=== PATIENT | male | born 1985 | race Caucasian/White ===

== ENCOUNTER 2019-06-25 08:26 | Outpatient (CLI) | payer OTHER ==
[2019-06-25 14:19] LABS: Hemoglobin 16.7 g/dL (14.0-18.0); Mean Corpuscular HGB CONC 34.3 g/dL (32.0-36.0); Mean Corpuscular Hemoglobin 30.5 pg (27.0-31.0); Mean Corpuscular Volume 89.1 fL (78.0-98.0); Mean Platelet Volume 7.2 fL (7.4-10.4); Platelet Count 210 thou/uL (130-400); RBC Distribution Width 11.6 % (11.5-14.5); Red Blood Cell (RBC) Count 5.49 mill/uL (4.70-6.10); White Blood Cell (WBC) Count 7.3 thou/uL (4.8-10.8)
[2019-06-25 14:39] LABS: Anion Gap 13 mmol/L (10-20); BUN (Urea Nitrogen) 16 mg/dL (8.9-20.6); Calc. Creatinine Clearance 0 mL/min (70-130); Calcium 9.6 mg/dL (7.8-10.44); Carbon Dioxide 28 mmol/L (22-29); Chloride 104 mmol/L (98-107); Estimated GFR-MDRD 64; Glucose 86 mg/dL (70-105); Sodium 141 mmol/L (136-145)
[2019-06-26 13:13] LABS: SARS-CoV-2 MS2 Positive; SARS-CoV-2 N Gene Negative; SARS-CoV-2 S Gene Negative; SARS-CoV-2 orf1ab Negative
== END 2019-06-25 08:27 | disposition home or self-care (01) ==
LOC: LABBT 08:26
PROVIDERS: ATTEND Neurological Surgery
DX: Z01.812 Encounter for preprocedural laboratory examination (principal); Z11.59 Encounter for screening for other viral diseases; M54.16 Radiculopathy, lumbar region
CPT/HCPCS: 80048; 85027; 87635; U0002

== ENCOUNTER 2019-06-29 05:35 | Observation (INO) | payer OTHER ==
[2019-06-25 13:31] VITALS: BMI 34.2
[2019-06-29] MEDS ORDERED: Fentanyl 100 MCG/2 ML VIAL ONE ×4 (06:44→10:19)
[2019-06-29] MEDS ORDERED: Midazolam HCl 2 mg/2 ml Vial ONE (06:45)
[2019-06-29] MEDS ORDERED: HYDROmorphone 2 MG/ML VIAL ONE (07:52)
[2019-06-29] MEDS ORDERED: traMADol HCl 50 MG TAB PO PRN ×2 (10:01)
[2019-06-29] MEDS ORDERED: Promethazine 25 MG TAB PO PRN (10:01)
[2019-06-29] MEDS ORDERED: Milk Of Magnesia 30 ML UDCUP PO PRN (10:01)
[2019-06-29] MEDS ORDERED: diphenhydrAMINE 25 MG CAP PO PRN (10:01)
[2019-06-29] MEDS ORDERED: Promethazine HCl 25 MG/ML VIAL IM PRN (10:01)
[2019-06-29] MEDS ORDERED: diphenhydrAMINE 50 MG/ML VIAL IVP PRN (10:01)
[2019-06-29] MEDS ORDERED: Morphine 4 MG/ML VIAL SLOW IVP PRN (10:01)
[2019-06-29] MEDS ORDERED: Mag-Al 1200 mg/1200 mg/30 ML UDCUP PO PRN (10:01)
[2019-06-29] MEDS ORDERED: Promethazine HCl 12.5 MG SUPP PR PRN (10:01)
[2019-06-29] MEDS ORDERED: HYDROcodone/Acetaminophen 10/325 mg Tablet PO PRN (10:01)
[2019-06-29] MEDS ORDERED: Ondansetron PF 4 MG/2 ML Vial IVP PRN (10:04)
[2019-06-29] MEDS ORDERED: Ondansetron PF 4 MG/2 ML Vial ONE (10:22)
[2019-06-29] MEDS ORDERED: PROPOFOL 200 MG/20 ML VIAL ONE (10:22)
[2019-06-29] MEDS ORDERED: Rocuronium Bromide 10 MG/ML (10ML VIAL) ONE (10:22)
[2019-06-29] MEDS ORDERED: Lidocaine 1% PF 5 ML VIAL ONE (10:22)
[2019-06-29] MEDS ORDERED: Glycopyrrolate 0.2 MG/ML 5 ML SYRINGE ONE (10:22)
--- NOTE | 2019-06-29 10:54 | OP ---
DATE OF PROCEDURE: 06/29/2019 [employer] SUPERVISOR: Kyra Mejia PA-C PROCEDURES PERFORMED: Left L4-L5 and L5-S1 laminectomy, facetectomy, and foraminotomy, interbody arthrodesis, intervertebral biomechanical device, local morselized autograft, demineralized bone matrix, posterolateral arthrodesis, pedicle screw instrumentation L4 through S1. DESCRIPTION OF PROCEDURE: The patient was brought to the operating room and intubated. He was rolled in a prone position on gel-filled chest rolls. An incision was made exposing L4 through S1 and the level was confirmed by x-ray. The patient had significant bleeding throughout the case. After complete bilateral exposure, we performed a left-sided L5-S1 and left-sided L4-L5 laminectomy, facetectomy, foraminotomy, and diskectomies. Particularly at left L5-S1, there were significant chronic disk herniation. A complete decompression of the neural elements was achieved. The bony endplates of each disk were then decorticated for the purpose of arthrodesis and appropriate-sized intervertebral biomechanical PEEK device was brought in the field. It was filled with demineralized bone matrix, local morselized autograft, and tapped in place securely at L4-L5 and at L5-S1. Next, pedicle screws were placed at left L4, left L5, and left S1 using lateral fluoroscopic guidance and the positioning was confirmed by x-ray. The gay was secured between the screws, connected by nuts, which were final tightened. The wound was then extensively irrigated and MAC hemostasis was secured. A combination of demineralized bone matrix and local morselized autograft was laid over the right lamina and posterolateral surfaces for the purpose of arthrodesis. Vancomycin powder was applied and the wound was then closed in anatomic layers over drain. Job ID: [id number]
[2019-06-29] MEDS: tiZANidine HCl 4 MG TAB PO PRN (11:53)
[2019-06-29] MEDS: Sodium Chloride 0.9% 1,000 ML IV SCH (12:07)
[2019-06-29] MEDS: Morphine 2 MG/ML SYRINGE SLOW IVP PRN ×2 (14:24→22:10)
[2019-06-29] MEDS: HYDROcodone/Acetaminophen 10/325 mg Tablet PO PRN ×2 (14:26→20:48)
[2019-06-29] MEDS: CEFAZOLIN 2 GM in Premix Bag 1 BAG IVPB SCH (17:58)
[2019-06-30] MEDS: HYDROcodone/Acetaminophen 10/325 mg Tablet PO PRN ×3 (00:52→12:00)
[2019-06-30] MEDS: CEFAZOLIN 2 GM in Premix Bag 1 BAG IVPB SCH ×2 (00:52→08:40)
[2019-06-30] MEDS: Sodium Chloride 0.9% 1,000 ML IV SCH (01:04)
[2019-06-30] MEDS: tiZANidine HCl 4 MG TAB PO PRN ×2 (05:55→12:00)
[2019-06-30 12:00] VITALS: BP 138/78; TEMP 98.4
--- NOTE | 2019-07-01 08:44 | DIS ---
DATE OF ADMISSION: 06/29/2019 DATE OF DISCHARGE: 06/30/2019 The patient is a 33-year-old male with a history of factor V Leiden, recently evaluated in our office for progressive back and leg pain. The patient was found to have two-level degenerative disk disease. He underwent L4 through S1 diskectomy and fusion on 06/29/2019. Following the surgery, he was transitioned to the Med/Surg floor. His pain has been well-controlled with p.o. medications, he was tolerating regular diet, and he has been voiding appropriately. LIO drain was placed intraoperatively and LIO output has trended down nicely, only 10 mL out over the first night. On exam this morning, the patient is awake and alert, in no acute distress. He has free active range of motion of all extremities. No focal motor weakness. Incision is clean, dry, and intact. There is a small amount of dark red blood in the LIO drain. We will plan to dismiss the patient to home. I have discussed home care and precautions. We will follow up with the patient in 2 weeks in the office. He has been prescribed Ensign, Keflex, and Zanaflex. Job ID: [id number]
--- NOTE | 2019-07-04 15:50 | EKG ---
Test Reason : PREOP Blood Pressure : / mmHG Vent. Rate : 061 BPM Atrial Rate : 061 BPM P-R Int : 172 ms QRS Dur : 098 ms QT Int : 382 ms P-R-T Axes : 002 021 018 degrees QTc Int : 384 ms Normal sinus rhythm Normal ECG No previous ECGs available Confirmed by YONY FUNG (2) on 07/04/2019 3:49:37 PM Referred By: ELISHA Confirmed By:YONY FUNG
== END 2019-06-30 12:37 | disposition home or self-care (01) ==
LOC: SDC 05:35 → SURG A 11:29
PROVIDERS: ADMIT Neurological Surgery; ATTEND Neurological Surgery
PROC: 0SG00AJ Fusion of Lumbar Vertebral Joint with Interbody Fusion Device, Posterior Approach, Anterior Column, Open Approach (ICD-10-PCS; principal; 2019-06-30)
DX: M51.16 Intervertebral disc disorders with radiculopathy, lumbar region (principal); Z79.899 Other long term (current) drug therapy
CPT/HCPCS: 36416; 76000; 93005; 93010; C1713; C1768; J0690; J1170; J2001; J2250; J2270; J2405; J2704; J3010; J3370